=== PATIENT | male | born 1950 | race Caucasian/White ===

== ENCOUNTER 2017-03-26 11:27 | Inpatient (IN) | payer OTHER ==
[2017-03-26] MEDS ORDERED: FAMOTIDINE 20 MG/50 ML IVPB 50 ML IVPB ONE ×2 (11:55→12:49)
[2017-03-26] MEDS ORDERED: MAG HYDROX/AL HYDROX/SIMETH 30 ML UNIT-DOSE CUP PO ONE (11:56)
--- NOTE | 2017-03-26 12:15 | PDOC ---
History of Present Illness - General History Source: Patient - History of Present Illness Timing/Duration: reports: changing over time Quality: reports: other (unable to dewscribe) Abdominal Pain Onset Location: reports: epigastric <Ricky Ramirez - Last Filed: 03/29/17 20:28> <Leticia Aranda - Last Filed: 03/30/17 09:37> - General Chief Complaint: Pain, Acute Stated Complaint: CHEST PAIN, SOB Time Seen by Provider: 03/26/17 11:52 Past History - Past Medical History Anemia: No Asthma: Yes Cancer: No Cardiac Disorders: No CVA: No COPD: No CHF: No Dementia: No Diabetes: Yes GI Disorders: No Disorders: No HTN: No Hypercholesterolemia: No Liver Disease: No Seizures: No Thyroid Disease: No - Surgical History Abdominal Surgery: Yes Appendectomy: Yes Cardiac Surgery: No Cholecystectomy: No Lung Surgery: No Neurologic Surgery: No Orthopedic Surgery: No - Psycho/Social/Smoking Cessation Hx Anxiety: No Suicidal Ideation: No Smoking History: Former smoker Have you smoked in the past 12 months: No If you are a former smoker, when did you quit?: 1969 Information on smoking cessation initiated: No Hx Alcohol Use: Yes (social) Drug/Substance Use Hx: No Substance Use Type: Alcohol Hx Substance Use Treatment: No <Ricky Ramirez - Last Filed: 03/29/17 20:28> <Leticia Aranda - Last Filed: 03/30/17 09:37> - Past Medical History Allergies/Adverse Reactions: Allergies Allergy/AdvReac Type Severity Reaction Status Date / Time Penicillins Allergy Verified 03/26/17 11:33 Home Medications: Ambulatory Orders Metformin HCl [Glucophage -] 500 mg PO BID 05/02/12 Levofloxacin [Levaquin] 500 mg PO DAILY #7 tablet 03/29/17 Metronidazole 500 mg PO Q8H #21 tablet 03/29/17 Tramadol HCl [Ultram] 25 mg PO QID PRN #10 tablet MDD 4 03/29/17 Review of Systems - Review of Systems Constitutional: No: Chills, Fever Respiratory: No: Cough, Shortness of Breath Cardiac (ROS): No: Chest Pain, Lightheadedness, Palpitations ABD/GI: No: Diarrhea, Nausea : No: Dysuria, Flank Pain, Hematuria <VietnameseRicky - Last Filed: 03/29/17 20:28> *Physical Exam - Vital Signs Last Vital Signs Temp Pulse Resp BP Pulse Ox 98.0 F 74 18 154/77 96 03/26/17 11:32 03/26/17 11:32 03/26/17 11:32 03/26/17 11:32 03/26/17 11:32 - Physical Exam General Appearance: Yes: Appropriately Dressed, Mild Distress HEENT: positive: Normal Voice Neck: positive: Supple Respiratory/Chest: positive: Lungs Clear, Normal Breath Sounds. negative: Respiratory Distress Cardiovascular: positive: Regular Rate, S1, S2 Gastrointestinal/Abdominal: positive: Normal Bowel Sounds, Tender (to epigastrium), Soft. negative: Distended, Guarding, Rebound Musculoskeletal: negative: CVA Tenderness Extremity: positive: Normal Inspection Integumentary: positive: Dry, Warm Neurologic: positive: Fully Oriented, Alert, Normal Mood/Affect <Ricky Ramirez - Last Filed: 03/29/17 20:28> - Vital Signs Last Vital Signs Temp Pulse Resp BP Pulse Ox 98.3 F 62 18 127/69 95 03/29/17 08:00 03/29/17 08:00 03/29/17 08:00 03/29/17 08:00 03/29/17 09:00 <Leticia Aranda - Last Filed: 03/30/17 09:37> ED Treatment Course - LABORATORY CBC & Chemistry Diagram: 03/29/17 06:10 03/29/17 06:10 - RADIOLOGY Radiology Studies Ordered: Category Date Time Status CHEST X-RAY PORTABLE* [RAD] Stat Radiology 03/26/17 11:55 Ordered <VietnameseRicky - Last Filed: 03/29/17 20:28> - LABORATORY CBC & Chemistry Diagram: 03/29/17 06:10 03/29/17 06:10 - ADDITIONAL ORDERS Additional order review: 03/26/17 11:54 RBC 5.24 MCV 87.0 MCHC 33.2 RDW 13.1 MPV 7.7 Neutrophils % 75.0 Lymphocytes % 13.9 Monocytes % 9.2 Eosinophils % 1.6 Basophils % 0.3 - Medications Given in the ED: ED Medications Discontinued Medications Generic Name Dose Route Start Last Admin Trade Name Freq PRN Reason Stop Dose Admin Al Hydroxide/Mg Hydroxide 30 ml 03/26/17 11:56 03/26/17 12:56 Mylanta Oral Suspension - PO 03/26/17 11:57 30 ml ONCE ONE Administration Heparin Sodium (Porcine) 5,000 unit 03/26/17 23:00 03/27/17 02:27 Heparin - SQ Not Given Q8H-IV HEATHER Heparin Sodium (Porcine) 5,000 unit 03/27/17 20:00 03/29/17 11:24 Heparin - SQ 5,000 unit Q8H-IV HEATHER Administration Hydromorphone HCl 2 mg 03/26/17 21:21 03/26/17 21:44 Dilaudid Injection - IVPUSH 03/26/17 21:22 2 mg ONCE ONE Administration Famotidine/Sodium Chloride 50 mls @ 100 mls/hr 03/26/17 11:55 03/26/17 12:56 Pepcid 20 Mg Premixed Ivpb - IVPB 03/26/17 12:24 100 mls/hr ONCE ONE Administration Sodium Chloride 1,000 mls @ 1,000 mls/hr 03/26/17 12:21 03/26/17 12:56 Normal Saline - IV 03/26/17 13:20 1,000 mls/hr ASDIR STA Administration Aztreonam 1 gm/ Dextrose 50 mls @ 100 mls/hr 03/26/17 21:42 03/26/17 23:18 IVPB 03/26/17 22:11 100 mls/hr ONCE ONE Administration Protocol Metronidazole 100 mls @ 100 mls/hr 03/26/17 21:43 03/26/17 22:03 Flagyl 500mg Premixed Ivpb - IVPB 03/26/17 22:42 100 mls/hr ONCE ONE Administration Lactated Ringer's 1,000 mls @ 125 mls/hr 03/26/17 23:00 03/28/17 23:00 Lactated Ringers Solution IV Not Given ASDIR HEATHER Ciprofloxacin/Dextrose 200 mls @ 200 mls/hr 03/27/17 01:33 03/27/17 03:06 Cipro 400 Mg Premix Ivpb (Restricted To Id) IVPB 03/27/17 02:32 200 mls/hr ONCE ONE Administration Metronidazole 100 mls @ 100 mls/hr 03/27/17 07:00 03/29/17 10:46 Flagyl 500mg Premixed Ivpb - IVPB 100 mls/hr Q8H-IV HEATHER Administration Levofloxacin 150 mls @ 100 mls/hr 03/27/17 03:33 03/27/17 04:00 Levaquin 750 Mg Premixed Ivpb - IVPB 03/27/17 05:02 Not Given ONCE ONE Levofloxacin 100 mls @ 100 mls/hr 03/27/17 12:00 03/29/17 09:05 Levaquin 500 Mg Premixed Ivpb - IVPB 100 mls/hr DAILY HEATHER Administration Insulin Aspart 1 vial 03/27/17 07:00 03/29/17 11:28 Novolog Vial Sliding Scale - SQ 2 unit ACHS HEATHER Administration Protocol Morphine Sulfate 4 mg 03/26/17 13:49 03/26/17 14:09 Morphine Injection - IVPUSH 03/26/17 13:50 4 mg ONCE ONE Administration Morphine Sulfate 4 mg 03/26/17 16:59 03/26/17 17:14 Morphine Injection - IVPUSH 03/26/17 17:00 4 mg ONCE ONE Administration Morphine Sulfate 2 mg 03/26/17 23:00 03/28/17 22:20 Morphine Injection - IVPUSH 2 mg Q4H PRN Administration PAIN <Leticia Aranda - Last Filed: 03/30/17 09:37> Medical Decision Making - Medical Decision Making 03/26/17 12:10 67-year-old male, morbidly obese, history of [id number] diabetes, s/ p polypectomy during colonoscopy in 2011 after found to have guaiac +stool presenting with epigastric pain. Patient states for the past 3 days has had lower abdominal pain that radiates to epigastric area with maximum pain being in the epigastric region. States pain was initially constant, now intermittent with an intensity of 8-9 out of 10, worse with deep inspiration. Has been afraid to eat due to pain. No worsening of pain with exertion and no chest pain otherwise, shortness of breath, diaphoresis, nausea, vomiting, palpitations , leg pain or swelling. No known cardiac dease and no recent cardiac w/u. Denies excessive belching, change in BM, melena, brbrpr, dysuria, f/c. Denies history of similar symptoms in the past. No obvious reasons for DVT/PE See exam Epigastric pain ?GERD vs gastritis, unlikely nghia as no RUQ ttp, r/o cardiac source given RF -pain control -ekg -cxr -labs -?CT a/p 03/26/17 12:16 Labs within normal limits. Chest x-ray read as consolidation vs atelectasis to left base. Clinically no concern for pneumonia as patient denies cough, shortness of breath or fever. Continues to complain of lower abdominal pain at this time and states Pepcid and Maalox did not improve symptoms. Willl continue to manage pain and scan abdomen at this time as per discussion with ED attending 03/26/17 12:18 03/26/17 13:50 03/26/17 19:05 CT with fatty liver, which is already known to patient. Also seen are multiple gallbladder stones with wall thickening, some stranding and possible pericholecystic fluid concerning for acute cholecystitis. Though LFTs within normal limits. Ultrasound pending and patient signed out to [facility] pending further evaluation <Ricky Ramirez - Last Filed: 03/29/17 20:28> *DC/Admit/Observation/Transfer <Ricky Ramirez - Last Filed: 03/29/17 20:28> - Attestations Physician Attestion: I reviewed the case with the mid-level practitioner and agree with the mid- level practitioner's assessment, diagnosis and disposition. <Leticia Aranda - Last Filed: 03/30/17 09:37> Diagnosis at time of Disposition: Acute cholecystitis - Discharge Dispostion Disposition: HOME Condition at time of disposition: Improved - Prescriptions
[2017-03-26] MEDS ORDERED: SODIUM CHLORIDE 1,000 ML IV STA (12:21)
[2017-03-26 12:24] LABS: BASOPHIL 0.3 % (0-2.0); EOSINOPHIL 1.6 % (0-4.5); MCH 28.9 pg (25.7-33.7); MCHC 33.2 g/dl (32.0-35.9); MEAN PLT VOLUME 7.7 fl (7.5-11.1); PLATELET COUNT 263 K/MM3 (134-434); RDW 13.1 % (11.9-15.9)
[2017-03-26 12:26] LABS: URINE APPEARANCE CLEAR; URINE BILIRUBIN NEGATIVE (NEGATIVE); URINE BLOOD NEGATIVE (NEGATIVE); URINE COLOR YELLOW; URINE GLUCOSE (UA) 2+ (NEGATIVE); URINE KETONE TRACE (NEGATIVE); URINE LEUK ESTERASE NEGATIVE (NEGATIVE); URINE NITRITE NEGATIVE (NEGATIVE); URINE PROTEIN NEGATIVE (NEGATIVE); URINE UROBILINOGEN NEGATIVE E.U./dl (0.2-1.0)
[2017-03-26] MEDS ORDERED: MAG HYDROX/AL HYDROX/SIMETH 30 ML UNIT-DOSE CUP ONE (12:49)
[2017-03-26 13:07] LABS: ALBUMIN 3.7 g/dl (3.4-5.0); ANION GAP 9 (8-16); BILIRUBIN,TOTAL 0.9 mg/dL (0.2-1.0); CALCIUM 8.9 mg/dL (8.5-10.1); CO2 29 mmol/L (21-32); COCKROFT - GAULT 172.49; GLUCOSE,RANDOM 194 mg/dL (74-106); SGOT/AST 15 U/L (15-37); SGPT/ALT 30 U/L (12-78); TOT PROT 7.5 g/dl (6.4-8.2)
[2017-03-26 13:10] LABS: ALK PHOS 68 U/L (45-117); TROPONIN I < 0.02 ng/ml (0.00-0.05)
[2017-03-26] MEDS ORDERED: morphine CARPU-JECT 4 MG/1 ML DISP.SYRIN IVPUSH ONE ×2 (13:49→16:59)
[2017-03-26] MEDS ORDERED: morphine CARPU-JECT 4 MG/1 ML DISP.SYRIN ONE ×2 (14:07→17:11)
--- NOTE | 2017-03-26 21:18 | PDOC ---
*Physical Exam - Vital Signs Last Vital Signs Temp Pulse Resp BP Pulse Ox 98.0 F 87 16 126/61 98 03/26/17 11:32 03/26/17 17:28 03/26/17 17:28 03/26/17 17:28 03/26/17 17:28 ED Treatment Course - LABORATORY CBC & Chemistry Diagram: 03/26/17 11:54 03/26/17 12:45 - ADDITIONAL ORDERS Additional order review: Laboratory Results 03/26/17 03/26/17 12:45 11:54 Sodium 136 Potassium 4.3 Chloride 98 Carbon Dioxide 29 Anion Gap 9 BUN 12 Creatinine 1.0 Creat Clearance w eGFR > 60 Random Glucose 194 H Calcium 8.9 Total Bilirubin 0.9 AST 15 ALT 30 Alkaline Phosphatase 68 Creatine Kinase 124 Troponin I < 0.02 Total Protein 7.5 Albumin 3.7 Lipase 78 Urine Color Yellow Urine Appearance Clear Urine pH 6.0 Ur Specific [place] 1.015 Urine Protein Negative Urine Glucose (UA) 2+ H Urine Ketones Trace H Urine Blood Negative Urine Nitrite Negative Urine Bilirubin Negative Urine Urobilinogen Negative Ur Leukocyte Esterase Negative 03/26/17 11:54 RBC 5.24 MCV 87.0 MCHC 33.2 RDW 13.1 MPV 7.7 Neutrophils % 75.0 Lymphocytes % 13.9 Monocytes % 9.2 Eosinophils % 1.6 Basophils % 0.3 - Medications Given in the ED: ED Medications Discontinued Medications Generic Name Dose Route Start Last Admin Trade Name Freq PRN Reason Stop Dose Admin Al Hydroxide/Mg Hydroxide 30 ml 03/26/17 11:56 03/26/17 12:56 Mylanta Oral Suspension - PO 03/26/17 11:57 30 ml ONCE ONE Administration Famotidine/Sodium Chloride 50 mls @ 100 mls/hr 03/26/17 11:55 03/26/17 12:56 Pepcid 20 Mg Premixed Ivpb - IVPB 03/26/17 12:24 100 mls/hr ONCE ONE Administration Sodium Chloride 1,000 mls @ 1,000 mls/hr 03/26/17 12:21 03/26/17 12:56 Normal Saline - IV 03/26/17 13:20 1,000 mls/hr ASDIR STA Administration Morphine Sulfate 4 mg 03/26/17 13:49 03/26/17 14:09 Morphine Injection - IVPUSH 03/26/17 13:50 4 mg ONCE ONE Administration Morphine Sulfate 4 mg 03/26/17 16:59 03/26/17 17:14 Morphine Injection - IVPUSH 03/26/17 17:00 4 mg ONCE ONE Administration Progress Note - Progress Note Progress Note: 2109hrs: Spoke to Dr. Buck/pt's PMD, advised does not admit any longer. Req I call Dr Peck for surgery 2120hrs: Spoe to Dr. Peck/states for me to call surgery public relations 0hrs; Spoke to DR. Michele/surgery public relations. Req: pt be admitted to hospitalist/ antibiotics/ he will consult in the am. Most likely percutaneous drain as opposed to laparoscopic cholecystectomy *DC/Admit/Observation/Transfer Diagnosis at time of Disposition: Acute cholecystitis - Discharge Dispostion Condition at time of disposition: Stable Admit: Yes
[2017-03-26] MEDS ORDERED: HYDROmorphone HCL CARPU-JECT 2 MG/1 ML DISP.SYRIN IVPUSH ONE (21:21)
[2017-03-26] MEDS ORDERED: HYDROmorphone HCL CARPU-JECT 2 MG/1 ML DISP.SYRIN ONE (21:40)
[2017-03-26] MEDS ORDERED: AZTREONAM 1 GM in DEXTROSE 5%-WATER - 50 ML IVPB ONE (21:42)
[2017-03-26] MEDS ORDERED: METRONIDAZOLE 500 MG PREMIXED 100 ML IVPB ONE ×2 (21:43→21:46)
[2017-03-26] MEDS ORDERED: ONDANSETRON 4 MG/2 ML VIAL IVPB PRN (23:00)
--- NOTE | 2017-03-26 23:02 | HP ---
CHIEF COMPLAINT: abdominal pain PCP: HISTORY OF PRESENT ILLNESS: 67-year-old male, morbidly obese, DM, present to ED c/o RLQ pain. Patient pain started in LLQ moved to RLQ. sudden onset, intermittent, sharp, 8/10 and subsides to 3/10, aggravated with movement and deep inspiration. lower abdominal pain that radiates to epigastric. Associated Dry heaves and no vomiting. reports no appetite and avoids eating because of the pain. never had these symptoms before, denies sick contact. Denies CP, SOB, diaphoresis, nausea, vomiting, palpitations, leg pain or swelling. No known cardiac disease and no recent cardiac w/u. Denies excessive belching, change in BM, melena, brbrpr, dysuria, f/c. Denies history of similar symptoms in the past. ER course was notable for: (1)CT and US abd (2)CXR (3)IVF, pain control Recent Travel: [place] last week PAST MEDICAL HISTORY: dyslipidemia, DM, asthma, morbid obesity PAST SURGICAL HISTORY: appendectomy 1961, s/p polypectomy during colonoscopy in 2011 after found to have guaiac +stool presenting with epigastric pain. Social History: Smokin pack year, quit 50 years ago. Alcohol: former alcohol abuse, currently drinks 2 beers a couple of times a wek. Drugs: denies Family History: Father prostate ca, mother ovarian ca Allergies Penicillins Allergy--> Rash (Verified 03/26/17 11:33) HOME MEDICATIONS: Home Medications Medication Instructions Recorded Metformin HCl [Glucophage] 500 mg PO BID 05/02/12 REVIEW OF SYSTEMS CONSTITUTIONAL: loss of appetite, Absent: fever, chills, diaphoresis, generalized weakness, malaise, weight change HEENT: Absent: rhinorrhea, nasal congestion, throat pain, throat swelling, difficulty swallowing, mouth swelling, ear pain, eye pain, visual changes CARDIOVASCULAR: Absent: chest pain, syncope, palpitations, irregular heart rate, lightheadedness , peripheral edema RESPIRATORY: Absent: cough, shortness of breath, dyspnea with exertion, orthopnea, wheezing, stridor, hemoptysis GASTROINTESTINAL:nausea, Absent: abdominal pain, abdominal distension, vomiting, diarrhea, constipation, melena, hematochezia GENITOURINARY: Absent: dysuria, frequency, urgency, hesitancy, hematuria, flank pain, genital pain MUSCULOSKELETAL: Absent: myalgia, arthralgia, joint swelling, back pain, neck pain SKIN: Absent: rash, itching, pallor HEMATOLOGIC/IMMUNOLOGIC: Absent: easy bleeding, easy bruising, lymphadenopathy, frequent infections ENDOCRINE: Absent: unexplained weight gain, unexplained weight loss, heat intolerance, cold intolerance NEUROLOGIC: Absent: headache, focal weakness or paresthesias, dizziness, unsteady gait, seizure, mental status changes, bladder or bowel incontinence PSYCHIATRIC: Absent: anxiety, depression, suicidal or homicidal ideation, hallucinations. PHYSICAL EXAMINATION Vital Signs - 24 hr 03/26/17 03/26/17 03/26/17 11:32 12:30 17:28 Temperature 98.0 F Pulse Rate 74 Pulse Rate [ 73 87 Apical] Respiratory 18 16 16 Rate Blood Pressure 154/77 Blood Pressure 146/67 126/61 [Arm] O2 Sat by Pulse 96 96 98 Oximetry (%) GENERAL: Awake, alert, and fully oriented, in no acute distress. sitting in chair comfortably HEAD: Normal with no signs of trauma. EYES: sclera anicteric, conjunctiva clear. No lid lag. EARS, NOSE, THROAT: Ears normal, nares patent, oropharynx clear without exudates. Moist mucous membranes. NECK: Normal range of motion, supple without lymphadenopathy, JVD, or masses. LUNGS: Breath sounds equal, clear to auscultation bilaterally. No wheezes, and no crackles. No accessory muscle use. HEART: Regular rate and rhythm, normal S1 and S2 without murmur, rub or gallop. ABDOMEN: Large Obese abd, Soft, Tender RLQ>LLQ, tender RUQ not distended, normoactive bowel sounds, no guarding, no rebound, no masses. No hepatomegaly or splenomegaly. MUSCULOSKELETAL: Normal range of motion at all joints. No bony deformities or tenderness. No CVA tenderness. LOWER EXTREMITIES: 2+ pulses, warm, well-perfused. No calf tenderness. +2 peripheral edema. NEUROLOGICAL: Cranial nerves II-XII intact. Normal speech. Normal gait. PSYCHIATRIC: Cooperative. Good eye contact. Appropriate mood and affect. SKIN: Warm, dry, normal turgor, (+)Macular blanching plaques on hands, erythematous plaque like lesions on chest noted. plaques of erythematus scaly antior B/L LE(chronic) Laboratory Results - last 24 hr 0603/26/17 03/26/17 11:54 11:54 12:45 WBC 12.0 H RBC 5.24 Hgb 15.1 Hct 45.6 MCV 87.0 MCHC 33.2 RDW 13.1 Plt Count 263 MPV 7.7 Neutrophils % 75.0 Lymphocytes % 13.9 Monocytes % 9.2 Eosinophils % 1.6 Basophils % 0.3 Sodium 136 Potassium 4.3 Chloride 98 Carbon Dioxide 29 Anion Gap 9 BUN 12 Creatinine 1.0 Creat Clearance w eGFR > 60 Random Glucose 194 H Calcium 8.9 Total Bilirubin 0.9 AST 15 ALT 30 Alkaline Phosphatase 68 Creatine Kinase 124 Troponin I < 0.02 Total Protein 7.5 Albumin 3.7 Lipase 78 Urine Color Yellow Urine Appearance Clear Urine pH 6.0 Ur Specific [place] 1.015 Urine Protein Negative Urine Glucose (UA) 2+ H Urine Ketones Trace H Urine Blood Negative Urine Nitrite Negative Urine Bilirubin Negative Urine Urobilinogen Negative Ur Leukocyte Esterase Negative Active Medications Generic Name Dose Route Start Last Admin Trade Name Freq PRN Reason Stop Dose Admin Heparin Sodium (Porcine) 5,000 unit 03/26/17 23:00 03/27/17 02:27 Heparin - SQ Not Given Q8H-IV HEATHER Lactated Ringer's 1,000 mls @ 125 mls/hr 03/26/17 23:00 03/26/17 23:32 Lactated Ringers Solution IV 125 mls/hr ASDIR HEATHER Administration Metronidazole 100 mls @ 100 mls/hr 03/27/17 07:00 Flagyl 500mg Premixed Ivpb - IVPB Q8H-IV HEATHER Levofloxacin 150 mls @ 100 mls/hr 03/27/17 03:33 Levaquin 750 Mg Premixed Ivpb - IVPB 03/27/17 05:02 ONCE ONE Insulin Aspart 1 vial 03/27/17 07:00 Novolog Vial Sliding Scale - SQ ACHS HEATHER Protocol Morphine Sulfate 2 mg 03/26/17 23:00 03/27/17 03:00 Morphine Injection - IVPUSH 2 mg Q4H PRN Administration PAIN Ondansetron HCl 8 mg 03/26/17 23:00 Zofran Injection IVPB Q6H PRN NAUSEA EXAM: CT/ABDOMEN PELVIS CT WITH CONTR There is linear-like platelike atelectasis/scarring in the left lung base, posteriorly. The heart is within normal limits in size. The liver is within normal limits in size with mild decreased attenuation. Suggestive of a fatty liver. The spleen, pancreas, both adrenal glands and both kidneys appear unremarkable. There is mild stranding of the right perinephric fat which is nonspecific. Gallbladder is adequately distended with multiple small intraluminal stones and mild thickening of its wall. There is also minimal pericholecystic haziness versus questionable fluid. There is no evidence of small bowel obstruction or enlarged retroperitoneal lymph nodes. Normal- appearing terminal ileum. The appendix is not identified. Normal stool burden in the colon without gross wall thickening. A few diverticula in the proximal sigmoid colon without evidence of acute diverticulitis. Partially distended urinary bladder without wall thickening. Normal size prostate gland Visualized osseous structures appear intact with multilevel mild degenerative disc disease and anterior spondylosis mainly at L2-L3 level. Notes made of a focal sclerotic density in the right anterior/superior L3 vertebral body which is nonspecific. Deformity of the left ninth rib posterior arch likely due to old trauma Impression: Possible mild fatty infiltration of the liver. Slightly over distended gallbladder with multiple intraluminal stones, thickening of its wall and mild stranding/surrounding haziness that may represent inflammatory changes versus minimal pericholecystic free fluid. Rule out acute cholecystitis. Correlation with gallbladder ultrasound is needed Small focal sclerotic density in superior/anterior aspect of L3 vertebral body which is nonspecific. Correlate clinically for further evaluation. Reported By: Jonathan Stewart MD 03/26/17 EXAM: US/ABDOMEN US -LIMITED Right upper quadrant pain. Right upper abdomen ultrasound. The liver is is enlarged measuring 20 cm in sagittal length with markedly dense echotexture.Gallbladder is adequately distended with multiple intraluminal stones the largest measuring 1.6 cm, mild thickening of its wall and minimal pericholecystic free fluid no intra or extrahepatic bile duct dilatation is seen. The right kidney measures 13 cm sagittal length and appears unremarkable. Visualized portion of the pancreas appears unremarkable Visualized portion of the proximal abdominal aorta and inferior vena cava appear unremarkable. Limited examination. Flow within the portal vein could not be evaluated. There was normal enhancement of the portal vein CT scan done earlier on the same date. IMPRESSION: Hepatomegaly with a markedly dense echotexture consistent with fatty infiltration versus hepatocellular disease. Multiple gallstones with the mild thickening of its wall and minimal pericholecystic free fluid suggestive of acute cholecystitis. Correlate clinically for further evaluation. Reported By: Jonathan Stewart MD 03/26/17 ASSESSMENT/PLAN: 67-year-old male, morbidly obese, DM, present to ED c/o Abd pain found multiple gallbladder stones with wall thickening, some stranding and possible pericholecystic fluid concerning for acute cholecystitis. acute cholecystitis secondary to 2/2 chololithiasis in light of his elevated Risk factors age, Morbid obesity, LDH. Though LFTs within normal limits. Uncomplicated acute cholecystitis - IVF - NPO - Levaquin 750 Mg IVPB dialy - Flagyl 500mg Premixed IVPB Q8H - Dr. Michele, Surgical consult in AM: patient is high risk for surgery secondary to possible MALIK, Morbid obesity, Asthma. - Pt/ptt/INR - cross and match - repeat CBC, CMP DM -HbA1c -ISS HLD -lipid panel pending -continue home meds R/o MALIK: morbidly Obese, patient reports snoring - sleep study as out patient - weight loss Asthma - duoneb as needed Morbid obesity - discussed wth importance of loosing len, exercise, and diet. - discussed other options including bariatric surgery, consider referral to bariatric surgeon on discharge. DVT ppx: heparin 5000 units sq q8h. NO GI ppx indicated FEN NPO IV LR 125cc/hr replete electrolyte as need Dipo: addmit to med surge, possible surgery tomorrow Visit type - Emergency Visit Emergency Visit: Yes ED Registration Date: 03/26/17 Care time: The patient presented to the Emergency Department on the above date and was hospitalized for further evaluation of their emergent condition. - New Patient This patient is new to me today: Yes Date on this admission: 03/26/17 - Critical Care Critical Care patient: No
--- NOTE | 2017-03-26 23:05 | PN ---
<LizzieGladys - Last Filed: 03/26/17 23:16> Teaching Attending Note ATTENDING PHYSICIAN STATEMENT I saw and evaluated the patient. I reviewed the resident's note and discussed the case with the resident. I agree with the resident's findings and plan as documented. SUBJECTIVE: 67 year old male complaining of RLQ and epigastric pain for 3 days. He notes that the pain is intermittent, localized to the RLQ radiating to the epigastric area, 7/10 in severity. He reports dry heaving but denies any vomiting. He denies cp, SOB, diarrhea, hematochezia or constipation. He denies prior hx of gallstones. PMH: dyslipidemia, DM, asthma, morbid obesity PSH: appendectomy FMH: father prostate cancer, mother ovarian ca SH: former smoker quit in 1969. Denies drinking or drug use OBJECTIVE: Physical: VS: Last Vital Signs Temp Pulse Resp BP Pulse Ox 98.0 F 87 16 126/61 98 03/26/17 11:32 03/26/17 17:28 03/26/17 17:28 03/26/17 17:28 03/26/17 17:28 GENERAL: Awake, alert, and fully oriented, in no acute distress HEENT: Atraumatic. PERRLA, EOMI. Moist mucosa. No JVD LUNGS: No distress, speaks full sentences, clear to auscultation bilaterally HEART: Regular rate and rhythm, normal S1 and S2, no murmurs, rubs or gallops, peripheral pulses normal and equal bilaterally. ABDOMEN: (+)Epigastric tenderness, morbidly obese. Soft, normoactive bowel sounds. No guarding, no rebound. No masses EXTREMITIES: (+)bilateral leg swelling worse on the right than left. Normal range of motion. No clubbing or cyanosis. NEUROLOGICAL: Cranial nerves II through XII grossly intact. Normal speech, no focal sensorimotor deficits SKIN: (+)Macular blanching plaques on hands, erythematous plaque like lesions on chest noted. Warm, Dry, normal turgor. Labs: CBCD WBC 12.0 K/mm3 (4.0-10.0) H 03/26/17 11:54 RBC 5.24 M/mm3 (4.00-5.60) 03/26/17 11:54 Hgb 15.1 GM/dL (11.7-16.9) 03/26/17 11:54 Hct 45.6 % (35.4-49) 03/26/17 11:54 MCV 87.0 fl (80-96) 03/26/17 11:54 MCHC 33.2 g/dl (32.0-35.9) 03/26/17 11:54 RDW 13.1 % (11.9-15.9) 03/26/17 11:54 Plt Count 263 K/MM3 (134-434) 03/26/17 11:54 MPV 7.7 fl (7.5-11.1) 03/26/17 11:54 CMP Sodium 136 mmol/L (136-145) 03/26/17 12:45 Potassium 4.3 mmol/L (3.5-5.1) 03/26/17 12:45 Chloride 98 mmol/L (98-107) 03/26/17 12:45 Carbon Dioxide 29 mmol/L (21-32) 03/26/17 12:45 Anion Gap 9 (8-16) 03/26/17 12:45 BUN 12 mg/dL (7-18) 03/26/17 12:45 Creatinine 1.0 mg/dL (0.7-1.3) 03/26/17 12:45 Creat Clearance w eGFR > 60 (>60) 03/26/17 12:45 Calcium 8.9 mg/dL (8.5-10.1) 03/26/17 12:45 Total Bilirubin 0.9 mg/dL (0.2-1.0) 03/26/17 12:45 AST 15 U/L (15-37) 03/26/17 12:45 ALT 30 U/L (12-78) 03/26/17 12:45 Alkaline Phosphatase 68 U/L (45-117) 03/26/17 12:45 Total Protein 7.5 g/dl (6.4-8.2) 03/26/17 12:45 Albumin 3.7 g/dl (3.4-5.0) 03/26/17 12:45 IMAGING: EXAM: CT/ABDOMEN PELVIS CT WITH CONTR There is linear-like platelike atelectasis/scarring in the left lung base, posteriorly. The heart is within normal limits in size. The liver is within normal limits in size with mild decreased attenuation. Suggestive of a fatty liver. The spleen, pancreas, both adrenal glands and both kidneys appear unremarkable. There is mild stranding of the right perinephric fat which is nonspecific. Gallbladder is adequately distended with multiple small intraluminal stones and mild thickening of its wall. There is also minimal pericholecystic haziness versus questionable fluid. There is no evidence of small bowel obstruction or enlarged retroperitoneal lymph nodes. Normal- appearing terminal ileum. The appendix is not identified. Normal stool burden in the colon without gross wall thickening. A few diverticula in the proximal sigmoid colon without evidence of acute diverticulitis. Partially distended urinary bladder without wall thickening. Normal size prostate gland Visualized osseous structures appear intact with multilevel mild degenerative disc disease and anterior spondylosis mainly at L2-L3 level. Notes made of a focal sclerotic density in the right anterior/superior L3 vertebral body which is nonspecific. Deformity of the left ninth rib posterior arch likely due to old trauma Impression: Possible mild fatty infiltration of the liver. Slightly over distended gallbladder with multiple intraluminal stones, thickening of its wall and mild stranding/surrounding haziness that may represent inflammatory changes versus minimal pericholecystic free fluid. Rule out acute cholecystitis. Correlation with gallbladder ultrasound is needed Small focal sclerotic density in superior/anterior aspect of L3 vertebral body which is nonspecific. Correlate clinically for further evaluation. Reported By: Jonathan Stewart MD 03/26/17 EXAM: US/ABDOMEN US -LIMITED Right upper quadrant pain. Right upper abdomen ultrasound. The liver is is enlarged measuring 20 cm in sagittal length with markedly dense echotexture.Gallbladder is adequately distended with multiple intraluminal stones the largest measuring 1.6 cm, mild thickening of its wall and minimal pericholecystic free fluid no intra or extrahepatic bile duct dilatation is seen. The right kidney measures 13 cm sagittal length and appears unremarkable. Visualized portion of the pancreas appears unremarkable Visualized portion of the proximal abdominal aorta and inferior vena cava appear unremarkable. Limited examination. Flow within the portal vein could not be evaluated. There was normal enhancement of the portal vein CT scan done earlier on the same date. IMPRESSION: Hepatomegaly with a markedly dense echotexture consistent with fatty infiltration versus hepatocellular disease. Multiple gallstones with the mild thickening of its wall and minimal pericholecystic free fluid suggestive of acute cholecystitis. Correlate clinically for further evaluation. Reported By: Jonathan Stewart MD 06/09/17 ASSESSMENT AND PLAN: Abdominal pain secondary to choleosystitis/choleolithiasis/dyslipidemia/morbid obesity - IVF - NPO - Cipro and Flagyl - Surgical consult in AM - Case discussed with LALO Olivares Diabetes - RISS - Hbg A1C - Type in screen and coags in AM - Repeat CBC in AM DVT ppx R/o sleep apnea refer pt to sleep study since pt is high risk due to weight. Counseled patient on diet, exercise and weight loss. Documentation prepared by Gladys Samuel, acting as esthetician and manager medical spa for Sherlyn Simons M.D. <Sherlyn Simons - Last Filed: 04/08/17 21:01> Teaching Attending Note Name of Resident: Avelina Shelton
[2017-03-26] MEDS ORDERED: HEPARIN NA (PORCINE) 5,000 UNITS/ML 1ML VIAL ONE (23:20)
[2017-03-26] MEDS: HEPARIN NA (PORCINE) 5,000 UNITS/ML 1ML VIAL SQ SCH (23:21)
[2017-03-26] MEDS: LACTATED RINGERS SOLUTION 1,000 ML IV SCH (23:32)
[2017-03-27] MEDS ORDERED: CIPROFLOXACIN 400 MG/D5W 200 ML IVPB ONE ×2 (01:33→08:00)
[2017-03-27] MEDS ORDERED: ACETAMINOPHEN 325 MG TABLET (FP) PO PRN (01:39)
[2017-03-27] MEDS: HEPARIN NA (PORCINE) 5,000 UNITS/ML 1ML VIAL SQ SCH ×2 (02:27→21:18)
[2017-03-27 02:45] VITALS: BMI 49.8
[2017-03-27] MEDS: morphine CARPU-JECT 2 MG/1 ML DISP.SYRIN IVPUSH PRN ×4 (03:00→20:04)
[2017-03-27] MEDS ORDERED: LEVOFLOXACIN 750 MG IVPB 150 ML IVPB ONE (03:33)
[2017-03-27] MEDS ORDERED: ALBUTEROL SO4 2.5/IPRATROPIUM 0.5 INH SOL 3 ML VIAL.NEB. NEB PRN (03:58)
[2017-03-27] MEDS: INSULIN SLIDING SCALE (NOVOLOG) 1 VIAL SQ SCH ×4 (06:47→21:16)
[2017-03-27] MEDS: METRONIDAZOLE 500 MG PREMIXED 100 ML IVPB SCH ×3 (06:47→17:22)
[2017-03-27 08:09] LABS: BASOPHIL 0.8 % (0-2.0); EOSINOPHIL 4.5 % (0-4.5); MCH 29.6 pg (25.7-33.7); MEAN CELL VOLUME 87.3 fl (80-96); MEAN PLT VOLUME 7.5 fl (7.5-11.1); NEUTROPHILS 65.3 % (42.8-82.8); PLATELET COUNT 221 K/MM3 (134-434); RDW 13.2 % (11.9-15.9); WHITE BLOOD COUNT 8.5 K/mm3 (4.0-10.0)
[2017-03-27 08:30] LABS: INR 1.25 (0.82-1.09); PROTHROMBIN TIME (PATIENT) 13.8 SEC (9.98-11.88)
[2017-03-27 08:33] LABS: ACTIVATED PTT 29.5 SECONDS (26.9-34.4)
[2017-03-27 08:34] LABS: ANION GAP 7 (8-16); CALCIUM 8.4 mg/dL (8.5-10.1); CO2 30 mmol/L (21-32); COCKROFT - GAULT 190.62; CREATININE 0.9 mg/dL (0.7-1.3); GLUCOSE,RANDOM 171 mg/dL (74-106); MAGNESIUM 2.1 mg/dL (1.8-2.4); PHOSPHOROUS 2.8 mg/dL (2.5-4.9); SGOT/AST 13 U/L (15-37); SGPT/ALT 25 U/L (12-78)
[2017-03-27 08:38] LABS: ALBUMIN 3.3 g/dl (3.4-5.0); ALK PHOS 55 U/L (45-117); BILIRUBIN,TOTAL 0.9 mg/dL (0.2-1.0); TOT PROT 6.5 g/dl (6.4-8.2)
[2017-03-27] MEDS ORDERED: CEFTRIAXONE 2 MG in DEXTROSE 5%-WATER - 50 ML IVPB SCH (10:00)
--- NOTE | 2017-03-27 11:58 | PN ---
Physical Exam: SUBJECTIVE: Patient seen and examined Patient is sitting on the bed comfortably with no acute distress. OBJECTIVE: Vital Signs Temperature 98.2 F 03/27/17 05:01 Pulse Rate 84 03/27/17 05:01 Respiratory Rate 20 03/27/17 05:01 Blood Pressure 125/70 03/27/17 05:01 O2 Sat by Pulse Oximetry (%) 95 03/27/17 02:35 GENERAL: The patient is awake, alert, and fully oriented, in no acute distress. Morbidely obese HEAD: Normal with no signs of trauma. EYES: PERRL, extraocular movements intact, sclera anicteric, conjunctiva clear. ENT: Ears normal, oropharynx clear without exudates, moist mucous membranes. NECK: Trachea midline, full range of motion, supple. LUNGS: Breath sounds equal, clear to auscultation bilaterally, no wheezes, no crackles, no accessory muscle use. HEART: Regular rate and rhythm, S1, S2 without murmur, rub or gallop. ABDOMEN: Soft, nontender, nondistended, , morbidly obese, normoactive bowel sounds, no guarding, no rebound, no hepatosplenomegaly, no masses. EXTREMITIES: 2+ pulses, warm, well-perfused, no edema. NEUROLOGICAL: Cranial nerves II through XII grossly intact. Normal speech, gait not observed. PSYCH: Normal mood, normal affect. SKIN: Warm, dry, normal turgor, no rashes or lesions noted CBCD WBC 8.5 K/mm3 (4.0-10.0) 03/27/17 07:00 RBC 4.63 M/mm3 (4.00-5.60) 03/27/17 07:00 Hgb 13.7 GM/dL (11.7-16.9) 03/27/17 07:00 Hct 40.4 % (35.4-49) 03/27/17 07:00 MCV 87.3 fl (80-96) 03/27/17 07:00 MCHC 34.0 g/dl (32.0-35.9) 03/27/17 07:00 RDW 13.2 % (11.9-15.9) 03/27/17 07:00 Plt Count 221 K/MM3 (134-434) 03/27/17 07:00 MPV 7.5 fl (7.5-11.1) 03/27/17 07:00 CMP Sodium 139 mmol/L (136-145) 03/27/17 07:00 Potassium 3.9 mmol/L (3.5-5.1) 03/27/17 07:00 Chloride 102 mmol/L (98-107) 03/27/17 07:00 Carbon Dioxide 30 mmol/L (21-32) 03/27/17 07:00 Anion Gap 7 (8-16) L 03/27/17 07:00 BUN 14 mg/dL (7-18) 03/27/17 07:00 Creatinine 0.9 mg/dL (0.7-1.3) 03/27/17 07:00 Creat Clearance w eGFR > 60 (>60) 03/27/17 07:00 Random Glucose 171 mg/dL (74-106) H 03/27/17 07:00 Calcium 8.4 mg/dL (8.5-10.1) L 03/27/17 07:00 Total Bilirubin 0.9 mg/dL (0.2-1.0) 03/27/17 07:00 AST 13 U/L (15-37) L 03/27/17 07:00 ALT 25 U/L (12-78) 03/27/17 07:00 Alkaline Phosphatase 55 U/L (45-117) 03/27/17 07:00 Total Protein 6.5 g/dl (6.4-8.2) 03/27/17 07:00 Albumin 3.3 g/dl (3.4-5.0) L 03/27/17 07:00 CARDIAC ENZYMES Creatine Kinase 124 IU/L (39-308) 03/26/17 12:45 Troponin I < 0.02 ng/ml (0.00-0.05) 03/26/17 12:45 Active Medications Generic Name Dose Route Start Last Admin Trade Name Freq PRN Reason Stop Dose Admin Albuterol/Ipratropium 1 amp 03/27/17 03:58 Duoneb - NEB Q6H PRN SHORTNESS OF BREATH Heparin Sodium (Porcine) 5,000 unit 03/27/17 20:00 Heparin - SQ Q8H-IV HEATHER Lactated Ringer's 1,000 mls @ 125 mls/hr 03/26/17 23:00 03/26/17 23:32 Lactated Ringers Solution IV 125 mls/hr ASDIR HEATHER Administration Metronidazole 100 mls @ 100 mls/hr 03/27/17 07:00 03/27/17 09:48 Flagyl 500mg Premixed Ivpb - IVPB 100 mls/hr Q8H-IV HEATHER Administration Levofloxacin 100 mls @ 100 mls/hr 03/27/17 12:00 Levaquin 500 Mg Premixed Ivpb - IVPB DAILY HEATHER Insulin Aspart 1 vial 03/27/17 07:00 03/27/17 11:26 Novolog Vial Sliding Scale - SQ 2 unit ACHS HEATHER Administration Protocol Morphine Sulfate 2 mg 03/26/17 23:00 03/27/17 08:55 Morphine Injection - IVPUSH 2 mg Q4H PRN Administration PAIN Ondansetron HCl 8 mg 03/26/17 23:00 Zofran Injection IVPB Q6H PRN NAUSEA Home Medications Medication Instructions Recorded Metformin HCl [Glucophage] 500 mg PO BID 05/02/12 ASSESSMENT/PLAN: 67-year-old male, morbidly obese, DM, present to ED c/o Abd pain found multiple gallbladder stones with wall thickening, some stranding and possible pericholecystic fluid concerning for acute cholecystitis. acute cholecystitis secondary to 2/2 chololithiasis in light of his elevated Risk factors age, Morbid obesity, LDH. Though LFTs within normal limits. #Acute cholecystitis , on IVF, NPO for now, Levaquin 750 Mg IVPB dialy , Flagyl 500mg Premixed IVPB Q8H Dr. Michele, Surgical consult . Patient is high risk for surgery secondary to possible MALIK, Morbid obesity, Asthma. As per surgeon to manage the patient medically for now and once is stable to have a surgery in a tertiary care center since is patient is a very high risk for sx. # Morbid obesity: discussed wth importance of loosing len, exercise, and diet , discussed other options including bariatric surgery, will refer to bariatric surgeon on discharge. # T2DM, HbA1c , sliding scale with coverage #HLD; lipid panel ordered # Asthma duoneb as needed DVT ppx: heparin 5000 units sq q8h. NO GI ppx indicated Visit type - Emergency Visit Emergency Visit: Yes ED Registration Date: 03/26/17 Care time: The patient presented to the Emergency Department on the above date and was hospitalized for further evaluation of their emergent condition. - New Patient This patient is new to me today: Yes Date on this admission: 03/27/17 - Critical Care Critical Care patient: No
[2017-03-27] MEDS: LEVOFLOXACIN 500 MG IVPB 100 ML IVPB SCH (12:49)
--- NOTE | 2017-03-27 13:30 | PN ---
Progress Note (short form) - Note Progress Note: surgery pt seen and examined this am. full consult dictated. 67m, nearly super obese, presents with abd pain. Ct and u/s show abnormal gb with thickening and poss fluid and stones. Pt admitted overnight with abx and feels better. wbc wnl and lfts wnl. On exam abd is obese with ruq tenderness Plan- mild acute cholecysitits, cholelithiaisis improving in a super obese male with multiple medical problems. would not risk surgery in this high risk patient in the acute setting. would cont medical management. trial of clear liquids. if successful should consider bariatric surgery evaluation for elective sleeve gastrectomy with concomitant cholecystectomy. If medical management fails will need percutaneous drainage.
--- NOTE | 2017-03-27 14:33 | CONS ---
DATE OF CONSULTATION: 03/27/2017 REASON FOR CONSULTATION: Acute cholecystitis, cholelithiasis. REQUESTING PHYSICIAN: This is an emergency room consultation as requested by the emergency room physician. The patient was subsequently seen this morning after being admitted on the inpatient floor. BRIEF HISTORY: This is a morbidly obese 67-year-old male who states that since Wednesday at 2 o'clock in the morning he developed severe abdominal pain in different parts of his abdomen. Because of this persistent pain he came to the emergency room at [facility]. There he had a CAT scan of his abdomen and pelvis which showed a thickened gallbladder with a stone. There were no inflammatory changes. He then had an ultrasound which showed a thickened gallbladder with possible pericholecystic fluid. He was noted to have a mildly elevated white blood cell count to 12.5. He was admitted to the hospital and started on intravenous antibiotics and a surgical consultation was requested. Overnight his pain is mostly gone. He is quite hungry. He denies nausea. He denies vomiting. He states he never vomits, he only has dry heaves. He denies blood in his stool. He denies recent weight loss. PAST MEDICAL HISTORY: Significant for morbid obesity, hyperlipidemia, diabetes, and asthma. PAST SURGICAL HISTORY: Includes an appendectomy and a polypectomy done on colonoscopy. SOCIAL HISTORY: Significant for quitting tobacco. Positive for occasional alcohol consumption. FAMILY HISTORY: Significant for father with prostate cancer and mother with ovary cancer. His last colonoscopy was in 2011. ALLERGIES: HE HAS ALLERGIES TO PENICILLIN. MEDICATIONS: His home medications include Glucophage. REVIEW OF SYSTEMS: General: He denies fatigue or malaise. Cardiac: He denies chest pain or palpitations. Respiratory: He denies shortness of breath or wheeze. Gastrointestinal: As in history of present illness. Genitourinary: He denies dysuria. Musculoskeletal: He denies joint pain or joint swelling. Psychiatric: He denies hearing pressuring voices. PHYSICAL EXAMINATION: General Appearance: This is a morbidly obese, nearly superobese 67-year-old male in no distress. Vital Signs: The patient is afebrile. HEENT: Head is normocephalic. Sclerae are anicteric. Neck: Supple. Chest: Clear. Abdomen: Soft. He has mild right upper quadrant tenderness. He has a well-healed appendectomy scar. He has no obvious hernias. His examination is limited by obesity. Extremities: Trace edema. REVIEW OF LABORATORIES: White blood cell count is normal at 8.5, which is down from 12.0 on admission. His chemistries are unremarkable. DIAGNOSTIC DATA: Imaging is as stated in history of present illness. ASSESSMENT: This is a 67-year-old male with abdominal pain, right upper quadrant tenderness, and initial leukocytosis and a CAT scan and ultrasound consistent with a thickened gallbladder with stones. Clinically I suspect this is acute on chronic cholecystitis. The patient is a high risk patient due to his superobesity and it would be ill-advised to proceed with surgery in the acute inflammatory setting. At this point, the patient appears well with medical management and would continue medical management. We will give a trial of clear liquids. If the patient does tolerate medical management, he should be discharged home. He should be evaluated by bariatric surgery for possible sleeve gastrectomy with concomitant cholecystectomy. He stated that he was going to have a sleeve gastrectomy done in 2008, but then never had his surgery. If the patient does not wish to have bariatric surgery, he could consider cholecystectomy in the elected setting. However, based on his body mass index he still may be a better candidate for surgery at a tertiary care center. DO ROLDAN NEVAREZ/[id number]
--- NOTE | 2017-03-27 15:35 | EKG ---
Test Reason : Blood Pressure : / mmHG Vent. Rate : 077 BPM Atrial Rate : 077 BPM P-R Int : 188 ms QRS Dur : 108 ms QT Int : 386 ms P-R-T Axes : 058 -73 017 degrees QTc Int : 436 ms SINUS RHYTHM LEFT AXIS DEVIATION PULMONARY DISEASE PATTERN ABNORMAL ECG WHEN COMPARED WITH ECG OF 09-SEP-2016 09:18, INCOMPLETE RIGHT BUNDLE BRANCH BLOCK IS NO LONGER PRESENT CLINICAL CORRELATION IS RECOMMENDED BASELINE ARTIFACT Confirmed by LAUREN VINCENT, MARISSA ([id number]) on 03/27/2017 3:35:17 PM Referred By: Confirmed By:MARISSA AGUILAR MD
[2017-03-27] MEDS: LACTATED RINGERS SOLUTION 1,000 ML IV SCH ×2 (20:11→23:00)
[2017-03-28] MEDS: HEPARIN NA (PORCINE) 5,000 UNITS/ML 1ML VIAL SQ SCH ×3 (01:39→17:17)
[2017-03-28] MEDS: METRONIDAZOLE 500 MG PREMIXED 100 ML IVPB SCH ×3 (01:40→17:17)
[2017-03-28] MEDS: INSULIN SLIDING SCALE (NOVOLOG) 1 VIAL SQ SCH ×4 (06:08→21:27)
[2017-03-28] MEDS: LACTATED RINGERS SOLUTION 1,000 ML IV SCH ×3 (07:03→23:00)
--- NOTE | 2017-03-28 08:03 | PN ---
Progress Note (short form) - Note Progress Note: surgery pt tolerating liquids. no fever. will advance to low fat diet. if tolerates stable for d/c on one week levaquin/flagyl. suggest outpt eval for bariatric surgery with concomitant cholecystectomy or simply cholecstectomy outside the acute setting.
[2017-03-28] MEDS: LEVOFLOXACIN 500 MG IVPB 100 ML IVPB SCH (09:14)
[2017-03-28 09:25] LABS: BASOPHIL 0.6 % (0-2.0); MCH 29.9 pg (25.7-33.7); MEAN CELL VOLUME 87.8 fl (80-96); MEAN PLT VOLUME 7.5 fl (7.5-11.1); NEUTROPHILS 64.7 % (42.8-82.8); PLATELET COUNT 230 K/MM3 (134-434); RDW 12.9 % (11.9-15.9)
--- NOTE | 2017-03-28 09:45 | PN ---
Physical Exam: SUBJECTIVE: Patient seen and examined at bedside. No overnight events. He did have some abdominal pain with clear diet yesterday but much less than before. Denies CP,VU,palpitation,N/V. OBJECTIVE: Vital Signs Period Temp Pulse Resp BP Sys/[place] Pulse Ox Last 24 Hr 98.0 F-99.0 F 77-91 18-90 103-150/54-76 94-95 GENERAL: AAo x3 , NAD HEAD: NC/AT EYES: PERRL, EOMI, sclera anicteric, conjunctiva clear. No ptosis. ENT: moist mucous membranes. NECK: supple, no jvd LUNGS:CTAB, NO wheeze or rales HEART: RRR, S1, S2 without murmur, rub or gallop. ABDOMEN: Soft,obese, RUQ tenderness, nondistended, normoactive bowel sounds, no guarding, no rebound, no hepatosplenomegaly, no masses. EXTREMITIES: 2+ pulses, warm, well-perfused, no edema, lower extremity skin changes. NEUROLOGICAL: Cranial nerves II through XII grossly intact. Normal speech, gait not observed. Laboratory Results - last 24 hr 03/27/17 03/27/17 03/27/17 11:22 17:06 21:15 POC Glucometer 169 138 131 03/28/17 05:41 POC Glucometer 138 Active Medications Generic Name Dose Route Start Last Admin Trade Name Freq PRN Reason Stop Dose Admin Albuterol/Ipratropium 1 amp 03/27/17 03:58 Duoneb - NEB Q6H PRN SHORTNESS OF BREATH Heparin Sodium (Porcine) 5,000 unit 03/27/17 20:00 03/28/17 09:14 Heparin - SQ 5,000 unit Q8H-IV HEATHER Administration Lactated Ringer's 1,000 mls @ 125 mls/hr 03/26/17 23:00 03/28/17 07:03 Lactated Ringers Solution IV 125 mls/hr ASDIR HEATHER Administration Metronidazole 100 mls @ 100 mls/hr 03/27/17 07:00 03/28/17 09:14 Flagyl 500mg Premixed Ivpb - IVPB 100 mls/hr Q8H-IV HEATHER Administration Levofloxacin 100 mls @ 100 mls/hr 03/27/17 12:00 03/28/17 09:14 Levaquin 500 Mg Premixed Ivpb - IVPB 100 mls/hr DAILY HEATHER Administration Insulin Aspart 1 vial 03/27/17 07:00 03/28/17 06:08 Novolog Vial Sliding Scale - SQ Not Given ACHS [facility] Protocol Morphine Sulfate 2 mg 03/26/17 23:00 03/27/17 20:04 Morphine Injection - IVPUSH 2 mg Q4H PRN Administration PAIN Ondansetron HCl 8 mg 03/26/17 23:00 Zofran Injection IVPB Q6H PRN NAUSEA IMAGING:. * US/ABDOMEN US -LIMITED Right upper quadrant pain Right upper abdomen ultrasound. The liver is is enlarged measuring 20 cm in sagittal length with markedly dense echotexture.. Gallbladder is adequately distended with multiple intraluminal stones the largest measuring 1.6 cm, mild thickening of its wall and minimal pericholecystic free fluid no intra or extrahepatic bile duct dilatation is seen. The right kidney measures 13 cm sagittal length and appears unremarkable. Visualized portion of the pancreas appears unremarkable Visualized portion of the proximal abdominal aorta and inferior vena cava appear unremarkable. Limited examination. Flow within the portal vein could not be evaluated. There was normal enhancement of the portal vein CT scan done earlier on the same date. IMPRESSION: Hepatomegaly with a markedly dense echotexture consistent with fatty infiltration versus hepatocellular disease. Multiple gallstones with the mild thickening of its wall and minimal pericholecystic free fluid suggestive of acute cholecystitis. Correlate clinically for further evaluation. Reported By: Jonathan Stewart MD ASSESSMENT/PLAN: 67 yo super obese m with pmhx of DM admitted for acute cholecystitis. Problem List - Problems (1) Acute cholecystitis Assessment/Plan: * Advance diet to low fat diet. * Continue Levaquin and Flagyl * Consult Dr. Mendez (2) DM hyperosmolarity type II, uncontrolled Assessment/Plan: * BGM ACHS * ISS ACHS. * Hgb A1C 7.6 (3) Super obese Assessment/Plan: * Counseled on importance of weight loss. * Low fat diet. * recommended bariatric surgery . (4) DVT prophylaxis Assessment/Plan: * Heparin 5000 U SQ BID Visit type - Emergency Visit Emergency Visit: Yes ED Registration Date: 03/26/17 Care time: The patient presented to the Emergency Department on the above date and was hospitalized for further evaluation of their emergent condition. - New Patient This patient is new to me today: No - Critical Care Critical Care patient: No
[2017-03-28] MEDS: morphine CARPU-JECT 2 MG/1 ML DISP.SYRIN IVPUSH PRN ×2 (09:48→22:20)
--- NOTE | 2017-03-28 09:53 | PN ---
Teaching Attending Note Name of Resident: Sanjeev Bird ATTENDING PHYSICIAN STATEMENT I saw and evaluated the patient. I reviewed the resident's note and discussed the case with the resident. I agree with the resident's findings and plan as documented. SUBJECTIVE: Patient's pain decreased tremendously, comfortable with no acute distress, no fever or chills, no shortness of breath. OBJECTIVE: Vital Signs Temperature 98.6 F 03/28/17 07:30 Pulse Rate 84 03/28/17 07:30 Respiratory Rate 18 03/28/17 07:30 Blood Pressure 150/76 03/28/17 07:30 O2 Sat by Pulse Oximetry (%) 95 03/28/17 08:47 CBCD WBC 7.0 K/mm3 (4.0-10.0) 03/28/17 09:08 RBC 4.52 M/mm3 (4.00-5.60) 03/28/17 09:08 Hgb 13.5 GM/dL (11.7-16.9) 03/28/17 09:08 Hct 39.7 % (35.4-49) 03/28/17 09:08 MCV 87.8 fl (80-96) 03/28/17 09:08 MCHC 34.0 g/dl (32.0-35.9) 03/28/17 09:08 RDW 12.9 % (11.9-15.9) 03/28/17 09:08 Plt Count 230 K/MM3 (134-434) 03/28/17 09:08 MPV 7.5 fl (7.5-11.1) 03/28/17 09:08 CMP Sodium 139 mmol/L (136-145) 03/27/17 07:00 Potassium 3.9 mmol/L (3.5-5.1) 03/27/17 07:00 Chloride 102 mmol/L (98-107) 03/27/17 07:00 Carbon Dioxide 30 mmol/L (21-32) 03/27/17 07:00 Anion Gap 7 (8-16) L 03/27/17 07:00 BUN 14 mg/dL (7-18) 03/27/17 07:00 Creatinine 0.9 mg/dL (0.7-1.3) 03/27/17 07:00 Creat Clearance w eGFR > 60 (>60) 03/27/17 07:00 Random Glucose 171 mg/dL (74-106) H 03/27/17 07:00 Calcium 8.4 mg/dL (8.5-10.1) L 03/27/17 07:00 Total Bilirubin 0.9 mg/dL (0.2-1.0) 03/27/17 07:00 AST 13 U/L (15-37) L 03/27/17 07:00 ALT 25 U/L (12-78) 03/27/17 07:00 Alkaline Phosphatase 55 U/L (45-117) 03/27/17 07:00 Total Protein 6.5 g/dl (6.4-8.2) 03/27/17 07:00 Albumin 3.3 g/dl (3.4-5.0) L 03/27/17 07:00 CARDIAC ENZYMES Creatine Kinase 124 IU/L (39-308) 03/26/17 12:45 Troponin I < 0.02 ng/ml (0.00-0.05) 03/26/17 12:45 Current Medications Generic Name Dose Route Start Last Admin Trade Name Freq PRN Reason Stop Dose Admin Albuterol/Ipratropium 1 amp 03/27/17 03:58 Duoneb - NEB Q6H PRN SHORTNESS OF BREATH Heparin Sodium (Porcine) 5,000 unit 03/27/17 20:00 03/28/17 09:14 Heparin - SQ 5,000 unit Q8H-IV HEATHER Administration Lactated Ringer's 1,000 mls @ 125 mls/hr 03/26/17 23:00 03/28/17 07:03 Lactated Ringers Solution IV 125 mls/hr ASDIR HEATHER Administration Metronidazole 100 mls @ 100 mls/hr 03/27/17 07:00 03/28/17 09:14 Flagyl 500mg Premixed Ivpb - IVPB 100 mls/hr Q8H-IV HEATHER Administration Levofloxacin 100 mls @ 100 mls/hr 03/27/17 12:00 03/28/17 09:14 Levaquin 500 Mg Premixed Ivpb - IVPB 100 mls/hr DAILY HEATHER Administration Insulin Aspart 1 vial 03/27/17 07:00 03/28/17 06:08 Novolog Vial Sliding Scale - SQ Not Given ACHS HEATHER Protocol Morphine Sulfate 2 mg 03/26/17 23:00 03/28/17 09:48 Morphine Injection - IVPUSH 2 mg Q4H PRN Administration PAIN Ondansetron HCl 8 mg 03/26/17 23:00 Zofran Injection IVPB Q6H PRN NAUSEA Home Medications Medication Instructions Recorded Metformin HCl [Glucophage] 500 mg PO BID 05/02/12 ASSESSMENT AND PLAN: 67-year-old male, morbidly obese, DM, present to ED c/o Abd pain found multiple gallbladder stones with wall thickening, some stranding and possible pericholecystic fluid concerning for acute cholecystitis. acute cholecystitis secondary to 2/2 chololithiasis in light of his elevated Risk factors age, Morbid obesity, LDH. Though LFTs within normal limits. #Acute cholecystitis , on IVF, will start him on diet, Levaquin 500mg IVPB dialy , Flagyl 500mg Premixed IVPB Q8H Dr. Michele, Surgical consult as per surgeon patient is a high risk for surgery secondary to possible MALIK, Morbid obesity, Asthma. As per surgeon to manage the patient medically for now and once is stable to have a surgery in a tertiary care center since is patient is a very high risk for sx. # Morbid obesity: discussed the importance of loosing len, exercise, and diet , discussed other options including bariatric surgery, will refer to bariatric surgeon on discharge. was consulted # T2DM, HbA1c , sliding scale with coverage #HLD; lipid panel ordered # Asthma duoneb as needed DVT ppx: heparin 5000 units sq q8h.
[2017-03-28 09:59] LABS: ALBUMIN 3.1 g/dl (3.4-5.0); ALK PHOS 54 U/L (45-117); ANION GAP 8 (8-16); BILIRUBIN,TOTAL 0.8 mg/dL (0.2-1.0); CALCIUM 8.3 mg/dL (8.5-10.1); CO2 30 mmol/L (21-32); COCKROFT - GAULT 170.83; GLUCOSE,RANDOM 227 mg/dL (74-106); SGOT/AST 16 U/L (15-37); SGPT/ALT 27 U/L (12-78); TOT PROT 6.3 g/dl (6.4-8.2)
[2017-03-28] MEDS ORDERED: INSULIN (NOVOLOG) ASPART 100 UNITS/ML 10ML VIAL ONE (11:35)
[2017-03-29] MEDS: METRONIDAZOLE 500 MG PREMIXED 100 ML IVPB SCH ×2 (02:45→10:46)
[2017-03-29] MEDS: HEPARIN NA (PORCINE) 5,000 UNITS/ML 1ML VIAL SQ SCH ×2 (02:45→11:24)
[2017-03-29] MEDS: INSULIN SLIDING SCALE (NOVOLOG) 1 VIAL SQ SCH ×2 (06:16→11:28)
[2017-03-29 07:27] LABS: BASOPHIL 0.6 % (0-2.0); EOSINOPHIL 7.1 % (0-4.5); MCH 29.7 pg (25.7-33.7); MCHC 33.7 g/dl (32.0-35.9); MEAN PLT VOLUME 7.7 fl (7.5-11.1); NEUTROPHILS 64.9 % (42.8-82.8); PLATELET COUNT 231 K/MM3 (134-434); RDW 12.8 % (11.9-15.9); WHITE BLOOD COUNT 7.9 K/mm3 (4.0-10.0)
[2017-03-29 07:28] LABS: CALCIUM 8.2 mg/dL (8.5-10.1)
[2017-03-29 07:35] LABS: ALBUMIN 2.9 g/dl (3.4-5.0); ALK PHOS 53 U/L (45-117); ANION GAP 8 (8-16); BILIRUBIN,TOTAL 0.7 mg/dL (0.2-1.0); CO2 30 mmol/L (21-32); COCKROFT - GAULT 196.16; CREATININE 0.9 mg/dL (0.7-1.3); GLUCOSE,RANDOM 150 mg/dL (74-106); SGOT/AST 17 U/L (15-37); SGPT/ALT 25 U/L (12-78)
[2017-03-29 08:19] VITALS: BP 127/69; PULSE 62; TEMP 98.3
[2017-03-29] MEDS: LEVOFLOXACIN 500 MG IVPB 100 ML IVPB SCH (09:05)
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
[2017-03-29] MEDS ORDERED: INSULIN (NOVOLOG) ASPART 100 UNITS/ML 10ML VIAL ONE (11:26)
--- NOTE | 2017-03-29 13:11 | DS ---
Physical Exam: SUBJECTIVE: Patient seen and examined at bedside. No overnight events. No new complaints. Abdominal pain is minimal. Tolerating advanced diet. Denies CP,VU, SOB,palpitations, N/V. OBJECTIVE: Vital Signs Period Temp Pulse Resp BP Sys/[place] Pulse Ox Last 24 Hr 97.6 F-98.3 F 62-68 18-18 127-176/69-85 95-95 PHYSICAL EXAM GENERAL: AAo x3 , NAD HEAD: NC/AT EYES: PERRL, EOMI, sclera anicteric, conjunctiva clear. No ptosis. ENT: moist mucous membranes. NECK: supple, no jvd LUNGS:CTAB, NO wheeze or rales HEART: RRR, S1, S2 without murmur, rub or gallop. ABDOMEN: Soft,obese, RUQ tenderness improved, nondistended, normoactive bowel sounds, no guarding, no rebound, no hepatosplenomegaly, no masses. EXTREMITIES: 2+ pulses, warm, well-perfused, no edema, lower extremity skin changes. NEUROLOGICAL: Cranial nerves II through XII grossly intact. Normal speech, gait not observed. LABS Laboratory Results - last 24 hr 03/28/17 03/28/17 03/29/17 16:47 21:24 05:39 WBC RBC Hgb Hct MCV MCHC RDW Plt Count MPV Neutrophils % Lymphocytes % Monocytes % Eosinophils % Basophils % Sodium Potassium Chloride Carbon Dioxide Anion Gap BUN Creatinine Creat Clearance w eGFR POC Glucometer 126 158 141 Random Glucose Calcium Total Bilirubin AST ALT Alkaline Phosphatase Total Protein Albumin 03/29/17 03/29/17 03/29/17 06:10 06:10 11:23 WBC 7.9 RBC 4.34 Hgb 12.9 Hct 38.2 MCV 88.0 MCHC 33.7 RDW 12.8 Plt Count 231 MPV 7.7 Neutrophils % 64.9 Lymphocytes % 16.6 Monocytes % 10.8 H Eosinophils % 7.1 H Basophils % 0.6 Sodium 138 Potassium 4.2 Chloride 100 Carbon Dioxide 30 Anion Gap 8 BUN 12 Creatinine 0.9 Creat Clearance w eGFR > 60 POC Glucometer 168 Random Glucose 150 H D Calcium 8.2 L Total Bilirubin 0.7 AST 17 ALT 25 Alkaline Phosphatase 53 Total Protein 6.0 L Albumin 2.9 L IMAGING:. * US/ABDOMEN US -LIMITED Right upper quadrant pain Right upper abdomen ultrasound. The liver is is enlarged measuring 20 cm in sagittal length with markedly dense echotexture.. Gallbladder is adequately distended with multiple intraluminal stones the largest measuring 1.6 cm, mild thickening of its wall and minimal pericholecystic free fluid no intra or extrahepatic bile duct dilatation is seen. The right kidney measures 13 cm sagittal length and appears unremarkable. Visualized portion of the pancreas appears unremarkable Visualized portion of the proximal abdominal aorta and inferior vena cava appear unremarkable. Limited examination. Flow within the portal vein could not be evaluated. There was normal enhancement of the portal vein CT scan done earlier on the same date. IMPRESSION: Hepatomegaly with a markedly dense echotexture consistent with fatty infiltration versus hepatocellular disease. Multiple gallstones with the mild thickening of its wall and minimal pericholecystic free fluid suggestive of acute cholecystitis. Correlate clinically for further evaluation. Reported By: Jonathan Stewart MD HOSPITAL COURSE: 67 yo morbidly obese m with pmhx of DM admitted for acute cholecystitis. US was done and confirmed acute cholecystiits. Patient was kept NPO, given IV fluids, antibiotics and pain control. He was evaluated by surgery and was not deemed a good surgical candidate. He was also referred to Dr. Mendez for potential bariatric surgery. Diet was advanced and pain improved significantly. As for his diabetes was managed with BGM monitoring and novolog sliding scale. At time of discharge no fever, white count, tolerating diet, and pain is minimal. Patient is stable for discharge and instructed to continue oral antibiotics for 7 days and to follow up with primary doctor in one week. Date of Admission:03/26/17 Date of Discharge: 03/29/17 Minutes to complete discharge: 41 Discharge Summary Reason For Visit: ACUTE CHOLECYSTITIS Current Active Problems Acute cholecystitis (Acute) DVT prophylaxis (Acute) DM hyperosmolarity type II, uncontrolled (Chronic) Morbid obesity due to excess calories (Chronic) Super obese (Chronic) Condition: Improved - Instructions Diet, Activity, Other Instructions: -Please pick up operator your antibiotic from your pharmacy and take as directed for 7 days. -Please follow up with Primary doctor in one week. -Follow a diabetic diet. -Increase activity as tolerated. Referrals: Marques Mendez MD [Staff Physician] - Julián Buck [Primary Care Provider] - Disposition: HOME - Home Medications Comprehensive Discharge Medication List: Ambulatory Orders Metformin HCl [Glucophage -] 500 mg PO BID 05/02/12 Levofloxacin [Levaquin] 500 mg PO DAILY #7 tablet 03/29/17 Metronidazole 500 mg PO Q12H #14 tablet 03/29/17 Problem List - Problems (1) Acute cholecystitis (2) DM hyperosmolarity type II, uncontrolled (3) Super obese (4) DVT prophylaxis This patient is new to me today: No Emergency Visit: Yes ED Registration Date: 03/26/17 Care time: The patient presented to the Emergency Department on the above date and was hospitalized for further evaluation of their emergent condition. Critical Care patient: No - Discharge Referral Referred to [facility] Med [facility].C.: No
--- NOTE | 2017-03-29 17:38 | PN ---
Teaching Attending Note Name of Resident: Sanjeev Bird ATTENDING PHYSICIAN STATEMENT I saw and evaluated the patient. I reviewed the resident's note and discussed the case with the resident. I agree with the resident's findings and plan as documented. SUBJECTIVE: Patient is comfortable with no acute distress. OBJECTIVE: Vital Signs Temperature 98.3 F 03/29/17 08:00 Pulse Rate 62 03/29/17 08:00 Respiratory Rate 18 03/29/17 08:00 Blood Pressure 127/69 03/29/17 08:00 O2 Sat by Pulse Oximetry (%) 95 03/29/17 09:00 CBCD WBC 7.9 K/mm3 (4.0-10.0) 03/29/17 06:10 RBC 4.34 M/mm3 (4.00-5.60) 03/29/17 06:10 Hgb 12.9 GM/dL (11.7-16.9) 03/29/17 06:10 Hct 38.2 % (35.4-49) 03/29/17 06:10 MCV 88.0 fl (80-96) 03/29/17 06:10 MCHC 33.7 g/dl (32.0-35.9) 03/29/17 06:10 RDW 12.8 % (11.9-15.9) 03/29/17 06:10 Plt Count 231 K/MM3 (134-434) 03/29/17 06:10 MPV 7.7 fl (7.5-11.1) 03/29/17 06:10 CMP Sodium 138 mmol/L (136-145) 03/29/17 06:10 Potassium 4.2 mmol/L (3.5-5.1) 03/29/17 06:10 Chloride 100 mmol/L (98-107) 03/29/17 06:10 Carbon Dioxide 30 mmol/L (21-32) 03/29/17 06:10 Anion Gap 8 (8-16) 03/29/17 06:10 BUN 12 mg/dL (7-18) 03/29/17 06:10 Creatinine 0.9 mg/dL (0.7-1.3) 03/29/17 06:10 Creat Clearance w eGFR > 60 (>60) 03/29/17 06:10 Random Glucose 150 mg/dL (74-106) H D 03/29/17 06:10 Calcium 8.2 mg/dL (8.5-10.1) L 03/29/17 06:10 Total Bilirubin 0.7 mg/dL (0.2-1.0) 03/29/17 06:10 AST 17 U/L (15-37) 03/29/17 06:10 ALT 25 U/L (12-78) 03/29/17 06:10 Alkaline Phosphatase 53 U/L (45-117) 03/29/17 06:10 Total Protein 6.0 g/dl (6.4-8.2) L 03/29/17 06:10 Albumin 2.9 g/dl (3.4-5.0) L 03/29/17 06:10 CARDIAC ENZYMES Creatine Kinase 124 IU/L (39-308) 03/26/17 12:45 Troponin I < 0.02 ng/ml (0.00-0.05) 03/26/17 12:45 Home Medications Medication Instructions Recorded Metformin HCl [Glucophage -] 500 mg PO BID 05/02/12 Levofloxacin [Levaquin] 500 mg PO DAILY #7 tablet 03/29/17 Metronidazole 500 mg PO Q8H #21 tablet 03/29/17 Tramadol HCl [Ultram] 25 mg PO QID PRN #10 tablet MDD 4 03/29/17 ASSESSMENT AND PLAN: 67-year-old male, morbidly obese, DM, present to ED c/o Abd pain found multiple gallbladder stones with wall thickening, some stranding and possible pericholecystic fluid concerning for acute cholecystitis. acute cholecystitis secondary to 2/2 chololithiasis in light of his elevated Risk factors age, Morbid obesity, LDH. Though LFTs within normal limits. #Acute cholecystitis , post IV antibiotic , pain is controlled and as per surgery recommendation to manage medically on po antibiotic for now and to go to tertiary care appointment for elective cholecystectomy and also was suggested to see a bariatric surgery for weight lose management. As per surgeon to discharge the patient home on po antibiotics for 7 more days. Levaqion 500mg po daily and flagyl 500mg po tid. Dr. Michele, Surgical consult as per surgeon patient is a high risk for surgery secondary to possible MALIK, Morbid obesity, Asthma. As per surgeon to manage the patient medically for now and once is stable to have a surgery in a tertiary care center since is patient is a very high risk for sx. # Morbid obesity: discussed the importance of loosing len, exercise, and diet , discussed other options including bariatric surgery, will refer to bariatric surgeon on discharge. was consulted # T2DM, HbA1c , continue metformin 500mg #HLD; lipid panel ordered # Asthma duoneb as needed discharge patient home.
== END 2017-03-29 13:59 | disposition home or self-care (01) | DRG 445 ==
LOC: JER 11:27 → SUPCPDRO 11:27 → JERBED 22:44 → UNDOADMIN 23:18 → J6S 03-27 01:44
PROVIDERS: ADMIT Internal Medicine; ATTEND Internal Medicine
DX: K80.00 Calculus of gallbladder with acute cholecystitis without obstruction (principal); Z68.42 Body mass index [BMI] 45.0-49.9, adult; E66.01 Morbid (severe) obesity due to excess calories; E78.5 Hyperlipidemia, unspecified; J45.909 Unspecified asthma, uncomplicated; Z87.891 Personal history of nicotine dependence; E11.9 Type 2 diabetes mellitus without complications
CPT/HCPCS: 36415; 71010-TC; 74177-TC; 76705-TC; 80053; 81003; 82550; 83036; 83690; 83735; 84100; 84484; 85025; 85610; 85730; 86140; 86850; 86900; 86901; 93005; 93010; 99284-25; J1644